=== PATIENT | female | born 1960 | race Caucasian/White ===

== ENCOUNTER 2024-05-26 08:29 | Day surgery (SDC) | payer OTHER ==
[2024-05-20 11:42] VITALS: BMI 33.3
[2024-05-26] MEDS ORDERED: MIDAZOLAM HCL 2 MG/2 ML SINGLE DOSE VIAL ONE ×3 (09:27→11:48)
[2024-05-26] MEDS ORDERED: BUPIVACAINE HCL/PF 0.5% (5MG/ML) 10 ML VIAL ONE (10:00)
[2024-05-26] MEDS ORDERED: BUPIVACAINE LIPOSOME/PF (EXPAREL) 266 MG/20 ML VIAL ONE (10:53)
[2024-05-26] MEDS ORDERED: BUPIVACAINE HCL/PF 0.5% (5 MG/ML) 30 ML VIAL IJ ONE (10:53)
[2024-05-26] MEDS ORDERED: PROPOFOL 20 ML ONE (11:31)
[2024-05-26] MEDS ORDERED: ONDANSETRON 4 MG/2 ML VIAL ONE (12:06)
[2024-05-26] MEDS ORDERED: SODIUM CHLORIDE 0.9% P/F 10 ML VIAL IJ ONE (12:06)
[2024-05-26] MEDS ORDERED: TRANEXAMIC ACID 1000 MG/10 ML VIAL ONE (12:06)
[2024-05-26] MEDS ORDERED: KETOROLAC TROMETHAMINE 30 MG/1 ML VIAL ONE (12:06)
[2024-05-26] MEDS ORDERED: ceFAZolin SODIUM 1 GM VIAL ONE (12:06)
[2024-05-26] MEDS ORDERED: DEXAMETHASONE SOD PHOSPHATE 4 MG/1 ML VIAL ONE (12:06)
[2024-05-26] MEDS ORDERED: PROPOFOL 40 ML ONE (12:23)
[2024-05-26] MEDS ORDERED: ONDANSETRON 4 MG/2 ML VIAL IVPUSH PRN ×2 (12:25→13:21)
[2024-05-26] MEDS ORDERED: MAG HYDROX/AL HYDROX/SIMETH 30 ML UNIT-DOSE CUP PO PRN (13:21)
[2024-05-26] MEDS ORDERED: MAGNESIUM HYDROX 2400MG/30ML ORAL SUSPENSION 30 ML CUP PO PRN (13:21)
[2024-05-26] MEDS: ACETAMINOPHEN 1000 MG/100 ML BAG IVPB ONE (13:30)
[2024-05-26] MEDS: CEFAZOLIN 2 GM in DEXTROSE 5%-WATER - 100 ML IVPB ONE (15:56)
[2024-05-26] MEDS: LACTATED RINGERS SOLUTION 1,000 ML IV SCH (15:57)
[2024-05-26] MEDS: ACETAMINOPHEN 1000 MG/100 ML BAG IVPB SCH (15:58)
[2024-05-26] MEDS: KETOROLAC TROMETHAMINE 30 MG/1 ML VIAL IVPUSH SCH (15:59)
[2024-05-26] MEDS: CEFAZOLIN 2 GM/D5W 2 GRAM/50 ML ML IVPB SCH (17:29)
[2024-05-26] MEDS: oxyCODONE HCL 5 MG TABLET PO PRN (17:30)
[2024-05-26] MEDS: TRANEXAMIC ACID - 1,000 MG in SODIUM CHLORIDE 50 ML IVPB SCH (21:47)
[2024-05-26] MEDS: SENNOSIDES/DOCUSATE COMBO (SENNA PLUS) TABLET (UD) PO SCH (21:47)
[2024-05-26] MEDS: FAMOTIDINE 20 MG TABLET PO SCH (21:48)
[2024-05-26] MEDS: ASPIRIN 81 MG CHEWABLE TABLETS PO SCH (21:48)
[2024-05-26] MEDS: oxyCODONE HCL 10 MG SUSTAINED ACTING TABLET PO SCH (21:48)
[2024-05-26] MEDS: DEXAMETHASONE 4 MG TABLET (FP) PO SCH (21:48)
[2024-05-26] MEDS: ACETAMINOPHEN 500 MG TABLET (FP) PO SCH (21:52)
[2024-05-26 21:57] VITALS: RESP 18
[2024-05-26] MEDS ORDERED: TRANEXAMIC ACID 1000 MG/10 ML VIAL IVPB SCH (22:00)
[2024-05-27] MEDS: oxyCODONE HCL 5 MG TABLET PO PRN (06:21)
[2024-05-27] MEDS: MULTIVITAMINS (DAILY MVI) TABLET (FP) PO SCH (10:03)
[2024-05-27 13:57] VITALS: BP 139/74; PULSE 76; TEMP 98.4
== END 2024-05-27 14:45 | disposition home or self-care (01) ==
LOC: FASUSAT 08:29 → FM/S 15:41 → FASUSAT 05-27 14:45
PROVIDERS: ATTEND Orthopaedic Surgery
PROC: 0SRC0J9 Replacement of Right Knee Joint with Synthetic Substitute, Cemented, Open Approach (ICD-10-PCS; principal; 2024-05-26 11:38)
DX: M17.11 Unilateral primary osteoarthritis, right knee (principal)
CPT/HCPCS: 27447; C1776; 73560-TC-RT-FY; 94760; 97010-GP; 97116-GP; 97161-GP; J0131